=== PATIENT | female | born 1940 | race Asian ===

== ENCOUNTER 2017-05-16 08:44 | Emergency (ER) | payer MEDICARE, OTHER ==
[~2017-05-16] VITALS: Ht 157.5 cm; Wt 79.7 kg
[~2017-05-16 08:44] MED LIST: ACET325T33 PO; ALEN70TA30 PO; ALLO100T PO; BECL8.7A5 INH; DICL100G37 TOP; FOLI-49 PO; GUAI118L94 PO; HYDR-3498 PO; IPRA4AER IH; LOSA100T47 PO; MONT10TA21 PO; OMEP20CA16 PO; PRA40 PO; PRED10TA PO; RTATR NEB; RTPRO NEB
[2017-05-16 08:47] VITALS: Ht 157.5 cm; Wt 79.7 kg
[2017-05-16] MEDS ORDERED: CEFTRIAXONE 1 GM/50 ML (PMX) 50 ML IVPB STA (09:26)
[2017-05-16] MEDS ORDERED: AZITHROMYCIN 500MG/NS (PMX) 250 ML IV STA (09:26)
[2017-05-16] MEDS ORDERED: ALBUTEROL 0.083% (NEB) 2.5 MG/3 ML AMP INH ONE (09:30)
[2017-05-16] MEDS ORDERED: IPRATROPIUM (NEB) 0.5 MG/2.5 ML AMP INH ONE (09:30)
[2017-05-16 09:53] LABS: ABNORMAL IP MESSAGE 1; BASOPHIL # 0.1 10^3/ul (0.0-0.1); BASOPHILS % 0.3 % (0.0-2.0); EOSINOPHILS # 0.3 10^3/ul (0.0-0.5); EOSINOPHILS % 1.4 % (0.0-7.0); HEMATOCRIT 40.5 % (37.0-47.0); HEMOGLOBIN 12.6 g/dl (12.0-16.0); MEAN CORPUSCULAR HGB CONC 31.1 g/dl (32.0-37.0); MEAN CORPUSCULAR VOLUME 93.1 fl (82.0-101.0); MEAN PLATELET VOLUME 10.6 fl (7.4-10.4); MONOCYTE # 1.7 10^3/ul (0.3-0.9); MONOCYTES % 8.8 % (0.0-11.0); NEUTROPHIL # 15.5 10^3/ul (1.6-7.5); PLATELET COUNT 143 10^3/UL (140-415); RED BLOOD COUNT 4.35 10^6/ul (4.20-5.40); RED CELL DISTRIBUTION WIDTH 12.9 % (11.5-14.5); WHITE BLOOD COUNT 19.6 10^3/ul (4.8-10.8)
--- NOTE | 2017-05-16 09:53 | ERA ---
ER Documentation Chief Complaint Date/Time DATE: 05/16/17 TIME: 09:52 Chief Complaint cough,st,sob since tuesday HPI This is 76-year-old female complains of cough for 3 days. She has yellow productive sputum and having subjective fevers with chills. She says that she is not short of breath has no chest pain no nausea vomiting diarrhea no work of breathing increases or shortness of breath. The patient has a history of sarcoidosis and says that she "always has lung problems". ROS All systems reviewed and are negative except as per history of present illness. Medications Home Meds Active Scripts Albuterol Sulfate* (Albuterol Sulfate* Neb) 0.083%-3 Ml Neb, 2.5 MG NEB Q4 Y for SHORTNESS OF BREATH, #30 EA Prov:ZACHARY MISHRA DO 05/16/17 Prednisone* (Prednisone*) 20 Mg Tab, 40 MG PO DAILY for 4 Days, TAB Prov:ZACHARY MISHRA DO 05/16/17 Azithromycin* (Zithromax*) 250 Mg Tablet, 250 MG PO .ZPACK DIRECTED, #6 TAB TAKE 500 MG (2 TABS) THE FIRST DAY THEN 250 MG (1 TAB) DAYS 2-5 Prov:ZACHARY MISHRA DO 05/16/17 Diclofenac Sodium* (Voltaren* Gel) 1% -100 Gm Gel, 2 GM TOP QID for PAIN for 14 Days, TUB Prov:MILADIS PIZANO NP 08/13/15 Hydrocodone Bit-Acetaminophen* ([place]*) 5-325 Mg Tab, 1 TAB PO Q6 Y for PAIN, # 14 TAB Prov:SUSI FLETCHER PA-C 07/30/15 Acetaminophen* (Tylenol*) 325 Mg Tablet, 2 TAB PO Q6 Y for PAIN AND OR ELEVATED TEMP, #20 TAB Prov:VALENCIA MARMOLEJO NP 07/23/15 Albuterol Sulfate* (Proventil* Neb) 0.083% Neb, 2.5 MG NEB Q4 Y for SHORTNESS OF BREATH, #30 EA Prov:NEISHA GONZALEZ MD 07/20/15 Ipratropium [place]* (Atrovent*) 0.5 Mg/2.5 Ml Neb, 0.5 MG NEB Q4H Y for WHEEZING AND SOB, #1 BOX Prov:NEISHA GONZALEZ MD 07/20/15 Guaifenesin-Codeine Phosphate* (Guaifenesin* with Codeine Liq) 120 Ml Liquid, 5 ML PO Q4H Y for COUGH, #120 ML Prov:NAUN SINGLETON NP 04/28/15 Albuterol/Ipratropium* (Combivent Respimat*) 20-100 Mcg/Inh - 4 Gm Aer.w.adap, 1 PUFF IH QID, #1 BOT Prov:RAVEN STERN 03/11/15 Reported Medications Alendronate Sodium* (Fosamax*) 70 Mg Tablet, 70 MG PO Q7D, TAB ON Tuesday05/17/14 Beclomethasone Dip* (Qvar 80*) 7.3 Gm Inha, 2 PUFF INH BID, INH 05/17/14 Prednisone* (Prednisone*) 10 Mg Tab, 10 MG PO DAILY, TAB 05/17/14 Folic Acid* (Folic Acid*) 1 Mg Tablet, 1 MG PO DAILY 10/11/12 Losartan Potassium* (Cozaar*) 100 Mg Tablet, 100 MG PO DAILY 10/11/12 Pravastatin Sodium* (Pravachol*) 40 Mg Tablet, 40 MG PO DAILY 10/11/12 Omeprazole* (Omeprazole*) 20 Mg Capsule.dr, 20 MG PO DAILY 10/11/12 Montelukast Sodium* (Singulair*) 10 Mg Tablet, 10 MG PO DAILY 10/11/12 Allopurinol* (Allopurinol*) 100 Mg Tablet, 100 MG PO DAILY 10/11/12 Allergies Allergies: Coded Allergies: ibuprofen (Verified Allergy, Unknown, 05/16/17) PMhx/Soc History of Surgery: Yes (Niko eyes cataract) Anesthesia Reaction: No Hx Neurological Disorder: No Hx Respiratory Disorders: Yes (ASTHMA, SARCOID IN THE LUNGS ) Hx Cardiac Disorders: Yes (HYPERTENSION, CHOLESTEROL) Hx Psychiatric Problems: No Hx Miscellaneous Medical Probl: No Hx Alcohol Use: No Hx Substance Use: No Hx Tobacco Use: No Smoking Status: Never smoker FmHx Family History: No coronary disease Physical Exam Vitals Vital Signs Date Time Temp Pulse Resp B/P Pulse Ox O2 Delivery O2 Flow Rate FiO2 05/16/17 09:57 88 25 96 Nasal Cannula 05/16/17 09:30 Nasal Cannula 2 05/16/17 09:11 Nasal Cannula 2.0 05/16/17 08:47 98.2 102 18 130/66 95 Physical Exam Const: Well-developed, well-nourished Head: Atraumatic, normocephalic Eyes: Normal Conjunctiva, PERRLA, EOMI, normal sclera, no nystagmus ENT: Normal External Ears, Nose and Mouth, moist mucus membranes. Neck: Full range of motion. No meningismus, no lymphadenopathy. Resp: [Right lower lobe rhonchi > diffuse rhonchi Cardio: Regular rate and rhythm, no murmurs, S1 S2 present Abd: Soft, non tender x 4, non distended. Normal bowel sounds, no guarding or rebound, no pulsitile abdominal masses or bruits Skin: No petechiae or rashes, no ecchymosis , no maculopapular rash Back: No midline or flank tenderness Ext: No cyanosis, or edema, FROM x 4, normal inspection, neurovascularly intact x 4 Neur: Awake and alert, STR 5/5 x 4, sensation intact x 4, no focal findings, cerebellum intact Psych: Normal Mood and Affect Result Diagram: 05/16/1740 05/16/17939 Results 24 hrs Laboratory Tests Test 05/16/17 09:40 White Blood Count 19.610^3/ul Red Blood Count 4.3510^6/ul Hemoglobin 12.6g/dl Hematocrit 40.5% Mean Corpuscular Volume 93.1fl Mean Corpuscular Hemoglobin 29.0pg Mean Corpuscular Hemoglobin Concent 31.1g/dl Red Cell Distribution Width 12.9% Platelet Count 95485^3/UL Mean Platelet Volume 10.6fl Neutrophils % 79.0% Lymphocytes % 10.0% Monocytes % 8.8% Eosinophils % 1.4% Basophils % 0.3% Nucleated Red Blood Cells % 0.0/100WBC Neutrophils # 15.510^3/ul Lymphocytes # 2.010^3/ul Monocytes # 1.710^3/ul Eosinophils # 0.310^3/ul Basophils # 0.110^3/ul Nucleated Red Blood Cells # 0.010^3/ul Sodium Level 145mmol/L Potassium Level 4.2mmol/L Chloride Level 107mmol/L Carbon Dioxide Level 29mmol/L Anion Gap 13 Blood Urea Nitrogen 26mg/dl Creatinine 1.99mg/dl Glucose Level 113mg/dl Calcium Level 9.5mg/dl Total Bilirubin 0.5mg/dl Direct Bilirubin 0.00mg/dl Indirect Bilirubin 0.5mg/dl Aspartate Amino Transf (AST/SGOT) 44IU/L Alanine Aminotransferase (ALT/SGPT) 59IU/L Alkaline Phosphatase 81IU/L B-Type Natriuretic Peptide 456PG/ML Total Protein 7.5g/dl Albumin 3.9g/dl Globulin 3.60g/dl Albumin/Globulin Ratio 1.08 Current Medications Medications (Trade) Dose Ordered Sig/Arlyn Route PRN Reason Start Time Stop Time Status Last Admin Dose Admin Albuterol (Proventil 0.083% (Neb)) 7.5 mg ONCE ONCE INH 05/16/17 09:30 05/16/17 09:31 DC 05/16/17 09:56 Ipratropium [place] 0.5 mg 0.5 mg ONCE ONCE INH 05/16/17 09:30 05/16/17 09:31 DC 05/16/17 09:56 Azithromycin 250 ml @ 250 mls/hr ONCE STAT IV 05/16/17 09:26 05/16/17 10:25 DC 05/16/17 09:26 Ceftriaxone Sodium (Rocephin) 50 ml @ 100 mls/hr ONCE STAT IVPB 05/16/17 09:26 05/16/17 09:55 DC 05/16/17 09:49 Methylprednisolone Sodium Succinate (Solu-Medrol) 125 mg ONCE STAT IV 05/16/17 12:19 05/16/17 12:20 DC Procedures/MDM PROCEDURE: XR Chest. CLINICAL INDICATION: Shortness of breath. TECHNIQUE: Single frontal view of the chest was obtained. COMPARISON: Chest x-ray 07/20/2015 12:[address] chest 03/08/2015. FINDINGS: Monitoring electrodes project across the chest. Degenerative osteophytes are noted in the thoracic and upper lumbar spine. The heart is enlarged. The cardiomediastinal silhouette and hilar structures are normal. The pulmonary vasculature is increased. There are vascular calcifications and ectasia of the left-sided thoracic aorta. There are interstitial perihilar infiltrates extending toward the periphery of the lungs with more confluent infiltrates in the right and left lower lobes. These are unchanged. A plate-like density seen lateral to the right hilum on the earlier study has resolved. Plate-like density seen in the periphery of the left lower lobe have improved over the interval. No pleural effusion is noted. There are cystic lucencies in the right lower lung field which are stable. IMPRESSION: 1. Atherosclerosis with ectasia of the thoracic aorta. 2. Cardiomegaly. 3. Pulmonary cystic bronchiectasis greater in the right lower lobe than left. Findings are unchanged compared to the prior CT scan of 03/08/2015 and more recent chest x-ray dated 07/20/2015. Some atelectasis seen lateral to the right hilum and near the left costophrenic angle on the prior chest x-ray resolved over the interval. 4. No new infiltrate is identified. RPTAT:AAJJ Ashu German Physician Date Time Electronically viewed and signed by Ashu German, Physician on 05/16/2017 10:02 JM/ CC: ZACHARY MISHRA DO The patient received some nebulizer treatments and she says she is feeling better. The patient takes 10 mg of prednisone each day hence the elevation in her white blood count. The patient says she has a nebulizer machine which she is out of solution. Room air oxygenation is 96% after breathing treatment and the patient states she feels better. Chest x-ray does not show any change or infiltrate. Patient has a bronchitis and will treat accordingly. We will discharge with a Z -Artemio, increase prednisone dose for 4 days and albuterol Departure Diagnosis: Primary Impression: Bronchitis Condition: Stable ZACHARY MISHRA DO May 16, 2017 09:53
[2017-05-16 09:57] LABS: POSITIVE DIFF @See below
--- NOTE | 2017-05-16 10:02 | RADRPT ---
PROCEDURE: XR Chest. CLINICAL INDICATION: Shortness of breath. TECHNIQUE: Single frontal view of the chest was obtained. COMPARISON: Chest x-ray 07/20/2015 12:[address] chest 03/08/2015. FINDINGS: Monitoring electrodes project across the chest. Degenerative osteophytes are noted in the thoracic and upper lumbar spine. The heart is enlarged. The cardiomediastinal silhouette and hilar structure s are normal. The pulmonary vasculature is increased. There are vascular calcifications and ectasia of the left-sided thoracic aorta. There are interstitial perihilar infiltrates extending toward the periphery of the lungs with more confluent infiltrates in the right and left lower lobes. These are unchanged. A plate-like density seen lateral to the right hilum on the earlier study has resolved. Plate-like density seen in the periphery of the left lower lobe have improved over the interval. No pleural effusion is noted. There are cystic lucencies in the right lower lung field which are stable . IMPRESSION: 1. Atherosclerosis with ectasia of the thoracic aorta. 2. Cardiomegaly. 3. Pulmonary cystic bronchiectasis greater in the right lower lobe than left. Findings are unchanged compared to the prior CT scan of 03/08/2015 and more recent chest x-ray dated 07/20/2015. Some atel ectasis seen lateral to the right hilum and near the left costophrenic angle on the prior chest x-ra y resolved over the interval. 4. No new infiltrate is identified. RPTAT:AAJJ Physician Nicolas Date Time Electronically viewed and signed by Physician Nicolas on 05/16/2017 10:02 HECTOR/
[2017-05-16 10:27] LABS: ALBUMIN 3.9 g/dl (3.3-4.9); ALBUMIN/GLOBULIN RATIO 1.08; BILIRUBIN,INDIRECT 0.5 mg/dl (0-1.1); BILIRUBIN,TOTAL 0.5 mg/dl (0.2-1.3); CALCIUM 9.5 mg/dl (8.4-10.2); CREATININE 1.99 mg/dl (0.44-1.00); POTASSIUM 4.2 mmol/L (3.5-5.1); TOTAL PROTEIN 7.5 g/dl (6.1-8.1)
[2017-05-16 11:10] VITALS: BP 132/63; PULSE 68; RESP 18; TEMP 98.2
[2017-05-16] MEDS ORDERED: METHYLPREDNISOLONE 125 MG INJ IV STA (12:19)
[2017-05-16] MEDS ORDERED: PRED20TA PO (12:22)
[2017-05-16] MEDS ORDERED: AZIT250T94 PO (12:22)
[2017-05-16] MEDS ORDERED: ALBU2.5V3 NEB (12:22)
== END 2017-05-16 14:35 | disposition home or self-care (01) ==
LOC: E/R 08:44
DX: J20.9 Acute bronchitis, unspecified (principal); J45.909 Unspecified asthma, uncomplicated; I10 Essential (primary) hypertension
CPT/HCPCS: 36415; 71010; 80053; 83880; 85025; 87040; 94644; 96374; 96375; 99284; J0456; J0696; J2930

== ENCOUNTER 2017-05-30 13:25 | Inpatient (IN) | payer MEDICARE, OTHER ==
[~2017-05-30] VITALS: Ht 162.6 cm; Wt 74.7 kg
[~2017-05-30 13:25] MED LIST changes: +ALBU2.5V3 NEB; +AZIT250T94 PO; +PRED20TA PO
[2017-05-30] MEDS ORDERED: METHYLPREDNISOLONE 125 MG INJ IV STA (16:20)
[2017-05-30] MEDS ORDERED: ALBUTEROL 0.083% (NEB) 2.5 MG/3 ML AMP NEB STA (16:20)
--- NOTE | 2017-05-30 17:35 | RADRPT ---
PROCEDURE: XR Chest. CLINICAL INDICATION: Chest Pain. TECHNIQUE: Single frontal view of the chest was obtained. COMPARISON: 05/16/2017, 07/20/2015 FINDINGS: The cardiomediastinal silhouette is within normal limits. There is moderate aortic calcification. P ulmonary vasculature is within normal limits. There is diffuse thickening of interstitial markings and bronchiectasis. This appears most prominent through the right lung and left lung base.. No signs of pleural fluid or pneumothorax are seen. The osseous structures and soft tissues are unre markable. IMPRESSION: 1. Diffuse bronchiectasis and chronic interstitial changes. 2. Moderate aortic calcification. 3. No focal consolidation identified. RPTAT: HBST .Ochoa Cosme MD, MD Date Time Electronically viewed and signed by .Ochoa Cosme MD, on 05/30/2017 17:35 .T/
[2017-05-30] MEDS ORDERED: ALBU8.5H3 INH (17:58)
[2017-05-30] MEDS ORDERED: VITA200C36 PO (17:59)
--- NOTE | 2017-05-30 20:15 | ERD ---
ER Documentation Chief Complaint Chief Complaint sob this morning HPI The patient is a 74-year-old female with a history of hypertension, sarcoidosis , and possible asthma, osteoporosis, gout, chronic kidney disease complaining of shortness of breath over the past few days. The patient says that she has shortness of breath with exertion and with lying flat. The patient says that she has had a cough for about 2 weeks now it is occasionally productive but no fever. No substernal chest pain no shortness of breath at rest. The patient is not on home oxygen and does not use a nebulizer machine. The patient says she is on steroids for autoimmune condition. The patient has no complaints of nausea vomiting diarrhea or lack of appetite ROS All systems reviewed and are negative except as per history of present illness. Medications Home Meds Active Scripts Albuterol/Ipratropium* (Combivent Respimat*) 20-100 Mcg/Inh - 4 Gm Aer.w.adap, 1 PUFF IH QID, #1 BOT Prov:LEENARAVEN 03/11/15 Reported Medications Vitamin E* (Vitamin E*) Unknown Strength Capsule, 1 CAP PO DAILY, CAP 05/30/17 Albuterol Sulfate* (Proair HFA*) 8.5 Gm Hfa.aer.ad, 2 PUFF INH Q6H Y for WHEEZING AND SOB, #1 INHALER 05/30/17 Alendronate Sodium* (Fosamax*) 70 Mg Tablet, 70 MG PO Q7D, TAB ON Tuesday05/17/14 Prednisone* (Prednisone*) 10 Mg Tab, 10 MG PO DAILY, TAB QAM 05/17/14 Folic Acid* (Folic Acid*) 1 Mg Tablet, 1 MG PO DAILY 10/11/12 Losartan Potassium* (Cozaar*) 100 Mg Tablet, 100 MG PO DAILY 10/11/12 Pravastatin Sodium* (Pravachol*) 40 Mg Tablet, 40 MG PO DAILY 10/11/12 Omeprazole* (Omeprazole*) 20 Mg Capsule.dr, 20 MG PO DAILY 10/11/12 Montelukast Sodium* (Singulair*) 10 Mg Tablet, 10 MG PO DAILY 10/11/12 Allopurinol* (Allopurinol*) 100 Mg Tablet, 100 MG PO DAILY 10/11/12 Discontinued Reported Medications Beclomethasone Dip* (Qvar 80*) 7.3 Gm Inha, 2 PUFF INH BID, INH 05/17/14 Discontinued Scripts Albuterol Sulfate* (Albuterol Sulfate* Neb) 0.083%-3 Ml Neb, 2.5 MG NEB Q4 Y for SHORTNESS OF BREATH, #30 EA Prov:ZACHARY MISHRA DO 05/16/17 Prednisone* (Prednisone*) 20 Mg Tab, 40 MG PO DAILY for 4 Days, TAB Prov:ZACHARY MISHRA DO 05/16/17 Azithromycin* (Zithromax*) 250 Mg Tablet, 250 MG PO .ZPACK DIRECTED, #6 TAB TAKE 500 MG (2 TABS) THE FIRST DAY THEN 250 MG (1 TAB) DAYS 2-5 Prov:ZACHARY MISHRA DO 05/16/17 Diclofenac Sodium* (Voltaren* Gel) 1% -100 Gm Gel, 2 GM TOP QID for PAIN for 14 Days, TUB Prov:MILADIS PIZANO [employer]ATING [employer]IPMENT SETTER 08/13/15 Hydrocodone Bit-Acetaminophen* ([place]*) 5-325 Mg Tab, 1 TAB PO Q6 Y for PAIN, # 14 TAB Prov:SUSI FLETCHER PA-C 07/30/15 Acetaminophen* (Tylenol*) 325 Mg Tablet, 2 TAB PO Q6 Y for PAIN AND OR ELEVATED TEMP, #20 TAB Prov:VALENCIA MARMOLEJO NP 07/23/15 Albuterol Sulfate* (Proventil* Neb) 0.083% Neb, 2.5 MG NEB Q4 Y for SHORTNESS OF BREATH, #30 EA Prov:NEISHA GONZALEZ MD 07/20/15 Ipratropium [place]* (Atrovent*) 0.5 Mg/2.5 Ml Neb, 0.5 MG NEB Q4H Y for WHEEZING AND SOB, #1 BOX Prov:NEISHA GONZALEZ MD 07/20/15 Guaifenesin-Codeine Phosphate* (Guaifenesin* with Codeine Liq) 120 Ml Liquid, 5 ML PO Q4H Y for COUGH, #120 ML Prov:NAUN SINGLETON [employer]ATING EQUIPMENT SETTER 04/28/15 Allergies Allergies: Coded Allergies: ibuprofen (Verified Allergy, Unknown, 05/30/17) PMhx/Soc History of Surgery: Yes (Niko eyes cataract) Anesthesia Reaction: No Hx Neurological Disorder: No Hx Respiratory Disorders: Yes (ASTHMA, SARCOID IN THE LUNGS ) Hx Cardiac Disorders: Yes (HYPERTENSION, CHOLESTEROL) Hx Psychiatric Problems: No Hx Miscellaneous Medical Probl: No Hx Alcohol Use: No Hx Substance Use: No Hx Tobacco Use: No Smoking Status: Never smoker FmHx Family History: No coronary disease Physical Exam Vitals Vital Signs Date Time Temp Pulse Resp B/P Pulse Ox O2 Delivery O2 Flow Rate FiO2 05/30/17 18:33 95 18 127/71 98 Nasal Cannula 1.0 05/30/17 18:03 98 18 120/65 98 Nasal Cannula 05/30/17 17:03 85 23 Nasal Cannula 1.0 05/30/17 16:44 Nasal Cannula 2.0 05/30/17 16:44 Nasal Cannula 2 05/30/17 13:31 98.4 107 22 141/77 96 Physical Exam Const: Well-developed, well-nourished Head: Atraumatic, normocephalic Eyes: Normal Conjunctiva, PERRLA, EOMI, normal sclera, no nystagmus ENT: Normal External Ears, Nose and Mouth, moist mucus membranes. Neck: Full range of motion. No meningismus, no lymphadenopathy. Resp: Bilateral decreased breath sounds with some scattered rhonchi Cardio: Regular rate and rhythm, no murmurs, S1 S2 present Abd: Soft, non tender x 4, non distended. Normal bowel sounds, no guarding or rebound, no pulsitile abdominal masses or bruits Skin: No petechiae or rashes, no ecchymosis , no maculopapular rash Back: No midline or flank tenderness Ext: No cyanosis, or edema, FROM x 4, normal inspection, neurovascularly intact x 4 Neur: Awake and alert, STR 5/5 x 4, sensation intact x 4, no focal findings, cerebellum intact Psych: Normal Mood and Affect Result Diagram: 05/30/17 1655 05/30/17 1655 Results 24 hrs Laboratory Tests Test 05/30/17 16:55 White Blood Count 18.010^3/ul Red Blood Count 4.6910^6/ul Hemoglobin 13.6g/dl Hematocrit 42.1% Mean Corpuscular Volume 89.8fl Mean Corpuscular Hemoglobin 29.0pg Mean Corpuscular Hemoglobin Concent 32.3g/dl Red Cell Distribution Width 13.0% Platelet Count 39152^3/UL Mean Platelet Volume 10.6fl Neutrophils % 85.5% Lymphocytes % 8.5% Monocytes % 3.8% Eosinophils % 0.2% Basophils % 0.6% Nucleated Red Blood Cells % 0.0/100WBC Neutrophils # 15.410^3/ul Lymphocytes # 1.510^3/ul Monocytes # 0.710^3/ul Eosinophils # 0.010^3/ul Basophils # 0.110^3/ul Nucleated Red Blood Cells # 0.010^3/ul Prothrombin Time 12.4Sec Prothrombin Time Ratio 1.0 INR International Normalized Ratio 0.92 Activated Partial Thromboplast Time 23.6Sec Sodium Level 142mmol/L Potassium Level 4.3mmol/L Chloride Level 105mmol/L Carbon Dioxide Level 23mmol/L Anion Gap 18 Blood Urea Nitrogen 44mg/dl Creatinine 2.09mg/dl Glucose Level 145mg/dl Calcium Level 9.7mg/dl Total Bilirubin 0.4mg/dl Direct Bilirubin 0.00mg/dl Indirect Bilirubin 0.4mg/dl Aspartate Amino Transf (AST/SGOT) 25IU/L Alanine Aminotransferase (ALT/SGPT) 44IU/L Alkaline Phosphatase 71IU/L Troponin I 0.018ng/ml B-Type Natriuretic Peptide 286PG/ML Total Protein 7.4g/dl Albumin 4.5g/dl Globulin 2.90g/dl Albumin/Globulin Ratio 1.55 Current Medications Medications (Trade) Dose Ordered Sig/Arlyn Route PRN Reason Start Time Stop Time Status Last Admin Dose Admin Albuterol (Proventil 0.083% (Neb)) 7.5 mg ONCE STAT NEB 05/30/17 16:20 05/30/17 16:26 DC 05/30/17 17:01 Methylprednisolone Sodium Succinate (Solu-Medrol) 125 mg ONCE STAT IV 05/30/17 16:20 05/30/17 16:26 DC 05/30/17 16:39 Procedures/MDM PROCEDURE: XR Chest. CLINICAL INDICATION: Chest Pain. TECHNIQUE: Single frontal view of the chest was obtained. COMPARISON: 05/16/2017, 07/20/2015 FINDINGS: The cardiomediastinal silhouette is within normal limits. There is moderate aortic calcification. Pulmonary vasculature is within normal limits. There is diffuse thickening of interstitial markings and bronchiectasis. This appears most prominent through the right lung and left lung base.. No signs of pleural fluid or pneumothorax are seen. The osseous structures and soft tissues are unremarkable. IMPRESSION: 1. Diffuse bronchiectasis and chronic interstitial changes. 2. Moderate aortic calcification. 3. No focal consolidation identified. RPTAT: HBST .Ochoa Cosme MD, MD Date Time Electronically viewed and signed by .Ochoa Cosme MD, MD on 05/30/2017 17:35 .T/ CC: ZACHARY MISHRA DO EKG: Rate/Rhythm: Normal Sinus Rhythm,NL intervals QRS, ST, QT: NORMAL TX, QRS, QT] Impression: NORMAL EKG Patient is given nebulizers and Solu-Medrol. After that watched the patient for a few hours. She was ambulated in the ER and she became symptomatic again her sats dropped to 85% Having some bronchitis/reactive airway disease likely due to her autoimmune condition Will admit for pulmonary therapy Departure Diagnosis: Primary Impression: Hypoxia Additional Impressions: Sarcoidosis Reactive airway disease Asthma severity: moderate Asthma persistence: persistent Asthma complication type: uncomplicated Qualified Code: J45.40 - Moderate persistent reactive airway disease without complication Condition: Stable ZACHARY MISHRA DO May 30, 2017 20:15
[2017-05-30 20:30] VITALS: TEMP 98.4
[2017-05-30] MEDS ORDERED: ONDANSETRON 4 MG INJ IV PRN ×2 (20:30→23:00)
[2017-05-30] MEDS ORDERED: ACETAMINOPHEN 325 MG TAB PO PRN ×2 (20:30→23:00)
[2017-05-30 21:57] VITALS: PULSE 95
[2017-05-30 22:08] VITALS: Ht 162.6 cm; Wt 74.7 kg
[2017-05-30 22:18] VITALS: BP 115/55; RESP 18
[2017-05-30] MEDS ORDERED: NACL 0.9% 3 ML SYG IV SCH (23:00)
[2017-05-31] VITALS (12 sets, daily range): BP systolic 102–125; BP diastolic 55–89; PULSE 77–100; RESP 18–20
[2017-05-31] MEDS ORDERED: ALBUTEROL/IPRATROPIUM (NEB) 3 ML AMP HHN SCH (01:00)
[2017-05-31] MEDS: ALBUTEROL/IPRATROPIUM (NEB) 3 ML AMP HHN SCH ×6 (01:36→21:17)
[2017-05-31] MEDS ORDERED: SOD CHLORIDE 0.9% 500 ML IV ONE (04:30)
--- NOTE | 2017-05-31 05:39 | HP ---
Date/Time of Note Date/Time of Note DATE: 05/31/17 TIME: 05:09 Assessment/Plan VTE Prophylaxis VTE Prophylaxis Intervention: SCD's Lines/Catheters IV [facility]ter [facility]from [facility] Saline Lock Assessment/Plan Chief Complaint/Hosp Course This is a 76 year female being admitted to the telemetry floor for: 1 shortness of breath: This likely appears secondary to patient's underlying sarcoidosis/possible asthma. Patient did receive a loading dose of IV steroids in the ED. At the current time she does look comfortable as compared to when she initially came in and was tachypneic as noted on the ED documentation. At the current time I will continue her steroid dose and de-escalate as indicated. Will give her Xopenex every 4 hours. She does have an elevated white blood cell count however there are no fevers will continue to monitor this and check a ESR and a CRP level. She is on chronic steroids however 18,000 does appear to be slightly high so for this reason again we will check for any signs of underlying infection. Continue home inhalers.There are some signs of interstitial changes and get this is on the chest x-ray, consider CT scan if indicated. Supplemental O2 is indicated. #2 leukocytosis: Could be stress related/steroid related. There is no fever at this time and no signs of any focal consolidation on chest x-ray. Will order ESR and CRP level. Will continue to monitor for any signs of any infection and trend white blood cell count. #3 Hypertension: Continue monitor blood pressure, will hold losartan at this time secondary to acute kidney injury. #4 chronic kidney disease: Acute kidney injury patient's current creatinine is 1.99 which is increased from previous admission. Likely appears to be prerenal in etiology. Will provide some IV fluid hydration with normal saline. Will monitor kidney function. Will hold losartan at this time. #5 gout: Continue allopurinol #6 sarcoidosis: Please see #1. Will consult pulmonology if indicated. Patient is onChronic prednisone will hold home dose this time #7 DVT GI prophylaxis: SCDs, Protonix Further treatment strategy will be implemented as per the clinical course Problems: HPI/ROS Admit Date/Time Admit Date/Time May 30, 2017 at 20:09 Hx of Present Illness cc: sob The patient is a 74-year-old female with a history of hypertension, sarcoidosis , and possible asthma, osteoporosis, gout, chronic kidney disease complaining of shortness of breath over the past few days. The patient says that she has shortness of breath with exertion and with lying flat. The patient says that she has had a cough for about 2 weeks now it is occasionally productive but no fever. No substernal chest pain no shortness of breath at rest. The patient is not on home oxygen, but does have a nebulizer machine. The patient says she is on steroids for her sarcoidosis. She does report that she has been noticing herself wheezing as well. Allergies: Ibuprofen Occasions: See CAMILO MUNROE Const: As per HPI Eyes : No pain discharge or redness or change in visual acuity ENT: No pain, sore throat, congestion, congestion, dysphagia or discharge Respiratory: As per HPI Cardiovascular: No chest pain, palpitation, PND, or edema GI : no change in appetite, abdominal pain, nausea, vomiting, diarrhea, constipation, or change in the color his stool Genitourinary: No dysuria, hematuria, flank pain , discharge or CVA tenderness Musculoskeletal: No joint pain, back pain, neck pain, restricted range of motion in neck or joints Skin: No rash, bruising or hives Neuro: No headache, dizziness, syncope, seizure, focal weakness Endocrine: No polyuria, polydipsia, temperature intolerance Psych: No hallucination, depression, anxiety or suicidal ideation PMH/Family/Social Past Medical History hypertension, sarcoidosis, and possible asthma, osteoporosis, gout, chronic kidney disease Past Surgical History Right breast lump removal Family History Significant Family History: no pertinent family hx Social History Alcohol Use: none Smoking Status: Never smoker Drug Use: none Exam/Review of Systems Vital Signs Vitals Vital Signs Date Time Temp Pulse Resp B/P Pulse Ox O2 Delivery O2 Flow Rate FiO2 05/31/17 04:15 77 05/31/17 03:46 99.1 19 105/56 93 05/31/17 01:44 2.0 05/31/17 01:39 Nasal Cannula Exam Exam General: Patient is lying in bed in no acute distress at this time HEENT: Atraumatic, normocephalic. The pupils are equal, round and reactive. Extraocular motor are intact Neck: Supple with full range of motion. No rigidity or meningismus Chest: Nontender Lungs: Normal respirations however there are some coarse breath sounds/rales heard at the bases bilaterally Heart: Normal S1-S2, Regular rhythm and rate. Abdomen: Soft , nontender, nondistended , bowel sounds are present. No guarding no rebound tenderness , No masses or organomegaly. No costovertebral temporal angle mass Extremities: Normal to inspection, no edema no cyanosis Neurologic: Normal mental status, speech normal, cranial nerves II through XII are intact, motor and sensory are intact, no focal weakness Additional Comments PROCEDURE: XR Chest. CLINICAL INDICATION: Chest Pain. TECHNIQUE: Single frontal view of the chest was obtained. COMPARISON: 05/16/2017, 07/20/2015 FINDINGS: The cardiomediastinal silhouette is within normal limits. There is moderate aortic calcification. Pulmonary vasculature is within normal limits. There is diffuse thickening of interstitial markings and bronchiectasis. This appears most prominent through the right lung and left lung base.. No signs of pleural fluid or pneumothorax are seen. The osseous structures and soft tissues are unremarkable. IMPRESSION: 1. Diffuse bronchiectasis and chronic interstitial changes. 2. Moderate aortic calcification. 3. No focal consolidation identified. RPTAT: HBST .Ochoa Cosme MD, MD Date Time Electronically viewed and signed by .Ochoa Cosme MD, MD on 05/30/2017 17:35 .T/ CC: ZACHARY MISHRA DO Labs Result Diagram: 05/30/17 1655 05/30/17 1655 Medications Medications Current Medications Ondansetron HCl (Zofran Inj) 4 mg Q6H PRN IV NAUSEA AND/OR VOMITING; Start at 23:00 Acetaminophen (Tylenol Tab) 650 mg Q6H PRN PO PAIN LEVEL 1-3 OR FEVER; Start 05/30/17 at 23:00 Pantoprazole (Protonix Iv) 40 mg DAILY@06 IV ; Start 05/31/17 at 06:00 Methylprednisolone Sodium Succinate 30 mg 30 mg Q8 IV ; Start 05/31/17 at 06:00 Sodium Chloride (NS) 500 ml @ 500 mls/hr Q1H ONCE IV Last administered on t 04:52; Admin Dose 500 MLS/HR; Start 05/31/17 at 04:30; Stop 05/31/17 at 05:29 JA QUEZADA May 31, 2017 05:39
[2017-05-31] MEDS ORDERED: ALBUTEROL HFA 8 GM INHALER INH PRN (06:00)
[2017-05-31] MEDS ORDERED: PANTOPRAZOLE 40 MG INJ IV SCH (06:00)
[2017-05-31] MEDS: METHYLPREDNISOLONE 40 MG INJ IV SCH ×2 (06:13→13:22)
[2017-05-31] MEDS: ATORVASTATIN 20 MG TAB PO SCH (08:34)
[2017-05-31] MEDS: MONTELUKAST 10 MG TAB PO SCH (08:34)
[2017-05-31] MEDS: ALLOPURINOL 100 MG TAB PO SCH (08:34)
[2017-05-31] MEDS: FOLIC ACID 1 MG TAB PO SCH (08:34)
[2017-05-31] MEDS ORDERED: IPRATROPIUM (HFA) 12.9 GM INHALER INH SCH (09:00)
[2017-05-31] MEDS ORDERED: ALBUTEROL HFA 8 GM INHALER INH SCH (09:00)
[2017-05-31] MEDS: VITAMIN E 400 UNITS CAP PO SCH (10:36)
--- NOTE | 2017-05-31 11:53 | CONS ---
Date/Time of Note Date/Time of Note DATE: 05/31/17 TIME: 11:48 Assessment/Plan Assessment/Plan Additional Assessment/Plan Chest x-ray was reviewed from yesterday which is showing interstitial lung disease. Assessment and recommendations; 1. Patient admitted with shortness of breath due to underlying sarcoidosis with interval improvement. Possibly superimposed acute bronchitis. 2. Chronic immunosuppression, patient on nursing home prednisone use. 3. History of chronic renal insufficiency. Continue current treatment. Consultation Date/Type/Reason Admit Date/Time May 30, 2017 at 20:09 Date of Consultation: May 31, 2017 Type of Consultation: Pulmonary Reason for Consultation Pulmonary consultation requested for evaluation of sarcoidosis. History of presenting illness; patient is a very pleasant 76-year-old lady who was admitted to the hospital yesterday with a few days history of shortness of breath and chest congestion. Patient however denied having any wheezing. Since admission patient is already feeling markedly improved. According to her she normally has fair respiratory status and her sarcoidosis is under good control with 10 mg of prednisone daily. Past medical history; 1. Patient with history of sarcoidosis maintained on low-dose prednisone on a chronic basis. 2. Gout. 3. Chronic renal insufficiency. Medications; reviewed. Allergies; ibuprofen. Social history; patient never smoked. No history of alcohol or drug abuse. Family history; she is . She does not have any children. 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 Review systems; denies any headache, seizures. Any visual changes. Shortness of breath has markedly improved. Complains of very scant cough. Denies any wheezing. Denies any sputum production. Denies any abdominal pain, nausea or vomiting. Patient has had stable weight. Denies any melena or hematochezia. Denies any urinary symptoms. Denies any skin changes. Any new arthritis symptoms. General exam; elderly woman, awake and alert. Currently in no distress. Social History Alcohol Use: none Smoking Status: Never smoker Drug Use: none Exam/Review of Systems Vital Signs Vitals Vital Signs Date Time Temp Pulse Resp B/P Pulse Ox O2 Delivery O2 Flow Rate FiO2 05/31/17 11:42 98.0 90 18 115/60 96 05/31/17 08:30 2.0 05/31/17 08:10 Nasal Cannula Intake and Output 05/30/17 05/30/17 05/31/17 15:00 23:00 07:00 Intake Total 150 ml Balance 150 ml Exam HEENT exam; supple neck, no JVD. No lymphadenopathy. Midline trachea. No thyromegaly. Patient has bilateral intraocular lens implants. Has multiple carious teeth. Chest exam; scattered crackles bilaterally. S1-S2 audible, no murmurs. Regular rhythm. Abdomen exam; soft, nontender. No organomegaly. Bowel sounds audible. Extremity exam; no peripheral edema. No clubbing. Pulses 1+ bilaterally. 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 Results Result Diagram: 05/31/17 0649 05/31/17 0649 Results 24 hrs Laboratory Tests Test 05/30/17 16:55 05/30/17 23:15 05/31/17 06:49 White Blood Count 18.0 H 13.1 #H Red Blood Count 4.69 4.44 Hemoglobin 13.6 12.8 Hematocrit 42.1 40.1 Mean Corpuscular Volume 89.8 90.3 Mean Corpuscular Hemoglobin 29.0 28.8 L Mean Corpuscular Hemoglobin Concent 32.3 31.9 L Red Cell Distribution Width 13.0 13.1 Platelet Count 178 # 151 Mean Platelet Volume 10.6 H 11.0 H Neutrophils % 85.5 H 94.8 H Lymphocytes % 8.5 L 4.1 L Monocytes % 3.8 0.5 Eosinophils % 0.2 0.0 Basophils % 0.6 0.1 Nucleated Red Blood Cells % 0.0 0.0 Neutrophils # 15.4 H 12.4 H Lymphocytes # 1.5 0.5 L Monocytes # 0.7 0.1 L Eosinophils # 0.0 0.0 Basophils # 0.1 0.0 Nucleated Red Blood Cells # 0.0 0.0 Prothrombin Time 12.4 Prothrombin Time Ratio 1.0 INR International Normalized Ratio 0.92 Activated Partial Thromboplast Time 23.6 L Sodium Level 142 143 Potassium Level 4.3 4.2 Chloride Level 105 109 Carbon Dioxide Level 23 22 Anion Gap 18 H 16 Blood Urea Nitrogen 44 H 50 H Creatinine 2.09 H 1.96 H Glucose Level 145 165 Calcium Level 9.7 9.4 Total Bilirubin 0.4 0.3 Direct Bilirubin 0.00 0.00 Indirect Bilirubin 0.4 0.3 Aspartate Amino Transf (AST/SGOT) 25 24 Alanine Aminotransferase (ALT/SGPT) 44 40 Alkaline Phosphatase 71 60 Troponin I 0.018 B-Type Natriuretic Peptide 286 480 H Total Protein 7.4 6.9 Albumin 4.5 3.7 Globulin 2.90 3.20 Albumin/Globulin Ratio 1.55 1.15 Erythrocyte Sedimentation Rate 5 Hemoglobin A1c 5.9 Magnesium Level 1.9 C-Reactive Protein < 0.5 Triglycerides Level 119 Cholesterol Level 169 LDL Cholesterol, Calculated 71 HDL Cholesterol 74 Cholesterol/HDL Ratio 2.2 Thyroid Stimulating Hormone (TSH) < 0.015 L Medications Medications Current Medications Ondansetron HCl (Zofran Inj) 4 mg Q6H PRN IV NAUSEA AND/OR VOMITING; Start at 23:00 Acetaminophen (Tylenol Tab) 650 mg Q6H PRN PO PAIN LEVEL 1-3 OR FEVER; Start 05/30/17 at 23:00 Pantoprazole (Protonix Iv) 40 mg DAILY@06 IV Last administered on 05/31/17 06 :13; Admin Dose 40 MG; Start 05/31/17 at 06:00 Methylprednisolone Sodium Succinate (Solu-Medrol) 30 mg Q8 IV Last administered on 05/31/17 06:13; Admin Dose 30 MG; Start 05/31/17 at 06:00 Albuterol (Ventolin Hfa) 2 puff Q6H PRN INH WHEEZING AND SOB; Start 05/31/17 at 06:00 Allopurinol (Zyloprim) 100 mg DAILY PO Last administered on 05/31/17 08:34; Admin Dose 100 MG; Start 05/31/17 at 09:00 Folic Acid (Folic Acid) 1 mg DAILY PO Last administered on 05/31/17 08:34; Admin Dose 1 MG; Start 05/31/17 at 09:00 Montelukast Sodium (Singulair) 10 mg DAILY PO Last administered on 05/31/17 08:34; Admin Dose 10 MG; Start 05/31/17 at 09:00 Atorvastatin Calcium (Lipitor) 20 mg DAILY PO Last administered on 05/31/17 08:34; Admin Dose 20 MG; Start 05/31/17 at 09:00 Vitamin E (Vitamin E) 400 units DAILY PO Last administered on 05/31/17 10:36 ; Admin Dose 400 UNITS; Start 05/31/17 at 11:00 AGNIESZKA HERNANDEZ May 31, 2017 11:53
--- NOTE | 2017-05-31 16:12 | PN ---
Date/Time of Note Date/Time of Note DATE: 05/31/17 TIME: 16:10 Assessment/Plan VTE Prophylaxis VTE Prophylaxis Intervention: SCD's Lines/Catheters IV Catheter Type (from Nrs): Saline Lock Assessment/Plan Assessment/Plan 76 yo F with sarcoid, ?asthma here for SOB likely 2/2 bronchitis cont steroids RVP to check for viral etio. no evidence of CAP cont inhalers dc in AM if Off O2 Subjective 24 Hr Interval Summary Free Text/Dictation already breathing better. reports a few days of nonproductive coughing prior to admission Exam/Review of Systems Vital Signs Vitals Vital Signs Date Time Temp Pulse Resp B/P Pulse Ox O2 Delivery O2 Flow Rate FiO2 05/31/17 16:01 88 18 95 Nasal Cannula 2.0 05/31/17 11:42 98.0 115/60 Intake and Output 05/30/17 05/30/17 05/31/17 15:00 23:00 07:00 Intake Total 150 ml Balance 150 ml Exam nad +poor air movement with wheezing, +velcro crackles abd soft no rashes no edema Results Result Diagram: 05/31/17 0649 05/31/17 0649 Results 24 hrs Laboratory Tests Test 05/30/17 16:55 05/30/17 23:15 05/31/17 06:49 White Blood Count 18.0 H 13.1 #H Red Blood Count 4.69 4.44 Hemoglobin 13.6 12.8 Hematocrit 42.1 40.1 Mean Corpuscular Volume 89.8 90.3 Mean Corpuscular Hemoglobin 29.0 28.8 L Mean Corpuscular Hemoglobin Concent 32.3 31.9 L Red Cell Distribution Width 13.0 13.1 Platelet Count 178 # 151 Mean Platelet Volume 10.6 H 11.0 H Neutrophils % 85.5 H 94.8 H Lymphocytes % 8.5 L 4.1 L Monocytes % 3.8 0.5 Eosinophils % 0.2 0.0 Basophils % 0.6 0.1 Nucleated Red Blood Cells % 0.0 0.0 Neutrophils # 15.4 H 12.4 H Lymphocytes # 1.5 0.5 L Monocytes # 0.7 0.1 L Eosinophils # 0.0 0.0 Basophils # 0.1 0.0 Nucleated Red Blood Cells # 0.0 0.0 Prothrombin Time 12.4 Prothrombin Time Ratio 1.0 INR International Normalized Ratio 0.92 Activated Partial Thromboplast Time 23.6 L Sodium Level 142 143 Potassium Level 4.3 4.2 Chloride Level 105 109 Carbon Dioxide Level 23 22 Anion Gap 18 H 16 Blood Urea Nitrogen 44 H 50 H Creatinine 2.09 H 1.96 H Glucose Level 145 165 Calcium Level 9.7 9.4 Total Bilirubin 0.4 0.3 Direct Bilirubin 0.00 0.00 Indirect Bilirubin 0.4 0.3 Aspartate Amino Transf (AST/SGOT) 25 24 Alanine Aminotransferase (ALT/SGPT) 44 40 Alkaline Phosphatase 71 60 Troponin I 0.018 B-Type Natriuretic Peptide 286 480 H Total Protein 7.4 6.9 Albumin 4.5 3.7 Globulin 2.90 3.20 Albumin/Globulin Ratio 1.55 1.15 Erythrocyte Sedimentation Rate 5 Hemoglobin A1c 5.9 Magnesium Level 1.9 C-Reactive Protein < 0.5 Triglycerides Level 119 Cholesterol Level 169 LDL Cholesterol, Calculated 71 HDL Cholesterol 74 Cholesterol/HDL Ratio 2.2 Thyroid Stimulating Hormone (TSH) < 0.015 L Medications Medications Current Medications Ondansetron HCl (Zofran Inj) 4 mg Q6H PRN IV NAUSEA AND/OR VOMITING; Start at 23:00 Acetaminophen (Tylenol Tab) 650 mg Q6H PRN PO PAIN LEVEL 1-3 OR FEVER; Start 05/30/17 at 23:00 Pantoprazole (Protonix Iv) 40 mg DAILY@06 IV Last administered on 05/31/17 06 :13; Admin Dose 40 MG; Start 05/31/17 at 06:00 Methylprednisolone Sodium Succinate (Solu-Medrol) 30 mg Q8 IV Last administered on 05/31/17 13:22; Admin Dose 30 MG; Start 05/31/17 at 06:00 Albuterol (Ventolin Hfa) 2 puff Q6H PRN INH WHEEZING AND SOB; Start 05/31/17 at 06:00 Allopurinol (Zyloprim) 100 mg DAILY PO Last administered on 05/31/17 08:34; Admin Dose 100 MG; Start 05/31/17 at 09:00 Folic Acid (Folic Acid) 1 mg DAILY PO Last administered on 05/31/17 08:34; Admin Dose 1 MG; Start 05/31/17 at 09:00 Montelukast Sodium (Singulair) 10 mg DAILY PO Last administered on 05/31/17 08:34; Admin Dose 10 MG; Start 05/31/17 at 09:00 Atorvastatin Calcium (Lipitor) 20 mg DAILY PO Last administered on 05/31/17 08:34; Admin Dose 20 MG; Start 05/31/17 at 09:00 Vitamin E (Vitamin E) 400 units DAILY PO Last administered on 05/31/17 10:36 ; Admin Dose 400 UNITS; Start 05/31/17 at 11:00 FELIPE FINE MD May 31, 2017 16:12
--- NOTE | 2017-05-31 21:29 | RADRPT ---
PROCEDURE: XR Chest. CLINICAL INDICATION: Cough. TECHNIQUE: Two views. Frontal and lateral. COMPARISON: 05/30/2017. FINDINGS: There is bilateral pulmonary interstitial disease, unchanged. The heart is enlarged. There is calcification in the aorta consistent with atherosclerosis. There is no pleural effusion. There is no pneumothorax. IMPRESSION: 1. No change from 05/30/2017. RPTAT: QQ .Yovani Carbone MD, MD Date Time Electronically viewed and signed by .Yovani Carbone MD, on 05/31/2017 21:29 .R/
[2017-06-01] VITALS (10 sets, daily range): BP systolic 109–123; BP diastolic 55–68; PULSE 88–99; RESP 18–20
[2017-06-01] MEDS ORDERED: ALBUTEROL/IPRATROPIUM (NEB) 3 ML AMP HHN PRN (01:00)
[2017-06-01] MEDS: ALBUTEROL/IPRATROPIUM (NEB) 3 ML AMP HHN SCH (01:10)
[2017-06-01] MEDS: ATORVASTATIN 20 MG TAB PO SCH (08:34)
[2017-06-01] MEDS: VITAMIN E 400 UNITS CAP PO SCH (08:34)
[2017-06-01] MEDS: MONTELUKAST 10 MG TAB PO SCH (08:35)
[2017-06-01] MEDS: ALLOPURINOL 100 MG TAB PO SCH (08:35)
[2017-06-01] MEDS: FOLIC ACID 1 MG TAB PO SCH (08:35)
[2017-06-01] MEDS ORDERED: predniSONE 20 MG TAB PO SCH (09:00)
--- NOTE | 2017-06-01 11:35 | CONS ---
Date/Time of Note Date/Time of Note DATE: 06/01/17 TIME: 11:33 Assessment/Plan Assessment/Plan Additional Assessment/Plan Assessment and recommendations; 1. Patient admitted with possibly mild flareup of underlying sarcoidosis with significant interval improvement. Chest x-ray findings are stable reflecting bilateral interstitial lung disease. 2. History of mild renal insufficiency. Agree with switching the patient to prednisone. Consider discharge. Assess for home oxygen requirement by performing ambulatory pulse oximetry on room air. Consultation Date/Type/Reason Admit Date/Time May 30, 2017 at 20:09 Initial Consult Date 05/31/17 Type of Consultation: Pulmonary 24 HR Interval Summary Free Text/Dictation Patient's condition is stable. According to her she is back to her baseline respiratory status. Denies any wheezing, coughing. General exam; elderly woman, awake and alert. Currently in no distress. Exam/Review of Systems Vital Signs Vitals Vital Signs Date Time Temp Pulse Resp B/P Pulse Ox O2 Delivery O2 Flow Rate FiO2 06/01/17 08:44 99 06/01/17 08:10 2.0 06/01/17 07:51 98.2 18 123/58 96 06/01/17 07:48 Nasal Cannula Intake and Output 05/31/17 05/31/17 06/01/17 15:00 23:00 07:00 Intake Total 200 ml Balance 200 ml Exam HEENT exam; supple neck, no JVD. No lymphadenopathy. Midline trachea. No thyromegaly. Pharynx is clear. Chest exam; scattered bilateral crackles. S1-S2 audible, no murmurs. Regular rhythm. Abdomen exam; soft, nontender. No organomegaly. Bowel sounds audible. Extremity exam; no peripheral edema. No clubbing. 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 Results Result Diagram: 05/31/17 0649 06/01/17 0839 Results 24 hrs Laboratory Tests Test 06/01/17 08:39 Sodium Level 142 Potassium Level 4.6 Chloride Level 107 Carbon Dioxide Level 25 Anion Gap 15 Blood Urea Nitrogen 59 H Creatinine 2.05 H Glucose Level 152 Calcium Level 9.6 Medications Medications Current Medications Ondansetron HCl (Zofran Inj) 4 mg Q6H PRN IV NAUSEA AND/OR VOMITING; Start at 23:00 Acetaminophen (Tylenol Tab) 650 mg Q6H PRN PO PAIN LEVEL 1-3 OR FEVER; Start 05/30/17 at 23:00 Albuterol (Ventolin Hfa) 2 puff Q6H PRN INH WHEEZING AND SOB; Start 05/31/17 at 06:00 Allopurinol (Zyloprim) 100 mg DAILY PO Last administered on 06/01/17 08:35; Admin Dose 100 MG; Start 05/31/17 at 09:00 Folic Acid (Folic Acid) 1 mg DAILY PO Last administered on 06/01/17 08:35; Admin Dose 1 MG; Start 05/31/17 at 09:00 Montelukast Sodium (Singulair) 10 mg DAILY PO Last administered on 06/01/17 08 :35; Admin Dose 10 MG; Start 05/31/17 at 09:00 Atorvastatin Calcium (Lipitor) 20 mg DAILY PO Last administered on 06/01/17 08 :34; Admin Dose 20 MG; Start 05/31/17 at 09:00 Vitamin E (Vitamin E) 400 units DAILY PO Last administered on 06/01/17 08:34; Admin Dose 400 UNITS; Start 05/31/17 at 11:00 Prednisone (Prednisone) 40 mg DAILY PO Last administered on 06/01/17 08:35; Admin Dose 40 MG; Start 06/01/17 at 09:00 AGNIESZKA HERNANDEZ Jun 01, 2017 11:35
--- NOTE | 2017-06-01 15:19 | PN ---
Date/Time of Note Date/Time of Note DATE: 06/01/17 TIME: 15:19 Assessment/Plan VTE Prophylaxis VTE Prophylaxis Intervention: SCD's Lines/Catheters IV Catheter Type (from Nrsg): Saline Lock Assessment/Plan Assessment/Plan 76 yo F with sarcoid, ?asthma here for SOB likely 2/2 bronchitis cont steroids RVP to check for viral etio. no evidence of CAP cont inhalers dc in AM if Off O2-->WEAN O2 TOLERATED. Will assess for home O2 if still on O2 tomorrow Subjective 24 Hr Interval Summary Free Text/Dictation breathing not quite back to normal Exam/Review of Systems Vital Signs Vitals Vital Signs Date Time Temp Pulse Resp B/P Pulse Ox O2 Delivery O2 Flow Rate FiO2 06/01/17 12:23 93 06/01/17 12:20 98.0 18 109/55 92 06/01/17 08:10 2.0 06/01/17 07:48 Nasal Cannula Intake and Output 05/31/17 05/31/17 06/01/17 15:00 23:00 07:00 Intake Total 200 ml Balance 200 ml Exam nad poor air movement no rashes no edema abd soft Results Result Diagram: 05/31/17 0649 06/01/17 0839 Results 24 hrs Laboratory Tests Test 06/01/17 08:39 Sodium Level 142 Potassium Level 4.6 Chloride Level 107 Carbon Dioxide Level 25 Anion Gap 15 Blood Urea Nitrogen 59 H Creatinine 2.05 H Glucose Level 152 Calcium Level 9.6 Medications Medications Current Medications Ondansetron HCl (Zofran Inj) 4 mg Q6H PRN IV NAUSEA AND/OR VOMITING; Start at 23:00 Acetaminophen (Tylenol Tab) 650 mg Q6H PRN PO PAIN LEVEL 1-3 OR FEVER; Start 05/30/17 at 23:00 Albuterol (Ventolin Hfa) 2 puff Q6H PRN INH WHEEZING AND SOB; Start 05/31/17 at 06:00 Allopurinol (Zyloprim) 100 mg DAILY PO Last administered on 06/01/17 08:35; Admin Dose 100 MG; Start 05/31/17 at 09:00 Folic Acid (Folic Acid) 1 mg DAILY PO Last administered on 06/01/17 08:35; Admin Dose 1 MG; Start 05/31/17 at 09:00 Montelukast Sodium (Singulair) 10 mg DAILY PO Last administered on 06/01/17 08 :35; Admin Dose 10 MG; Start 05/31/17 at 09:00 Atorvastatin Calcium (Lipitor) 20 mg DAILY PO Last administered on 06/01/17 08 :34; Admin Dose 20 MG; Start 05/31/17 at 09:00 Vitamin E (Vitamin E) 400 units DAILY PO Last administered on 06/01/17 08:34; Admin Dose 400 UNITS; Start 05/31/17 at 11:00 Prednisone (Prednisone) 40 mg DAILY PO Last administered on 06/01/17 08:35; Admin Dose 40 MG; Start 06/01/17 at 09:00 FELIPE FINE MD Jun 01, 2017 15:19
[2017-06-01] MEDS ORDERED: PRED20TA PO (15:23)
--- NOTE | 2017-06-01 15:31 | DS ---
Date/Time of Note Date/Time of Note DATE: 06/01/17 TIME: 15:25 Discharge Summary Admission/Discharge Info Admit Date/Time May 30, 2017 at 20:09 Discharge Date/Time Discharge Diagnosis 1. Sarcoidosis, flare, improved, on tapering dosage of prednisone 2. Hypertension, controlled without antihypertensive 3. Gout, on allopurinol 4. Dyslipidemia, on statin Patient Condition: Stable Hx of Present Illness The patient is a 74-year-old female with a history of hypertension, sarcoidosis , and possible asthma, osteoporosis, gout, chronic kidney disease complaining of shortness of breath over the past few days. The patient says that she has shortness of breath with exertion and with lying flat. The patient says that she has had a cough for about 2 weeks now it is occasionally productive but no fever. No substernal chest pain no shortness of breath at rest. The patient is not on home oxygen, but does have a nebulizer machine. The patient says she is on steroids for her sarcoidosis. She does report that she has been noticing herself wheezing as well. Hospital Course Patient was started on SoluMedrol fro sarcoidosis flare up that improves her shortness of breath and hypoxia. SpO2 94% on room air. There is no infection clinically. Leukocytosis is considered steroid related. Patient will be on tapering dosage of prednisone and follow up with PCP outpatient. Home Meds Active Scripts Prednisone* (Prednisone*) 20 Mg Tab, 40 MG PO DAILY for 5 Days, TAB Prov:ROCHELLE BEGUM MD 06/01/17 Albuterol/Ipratropium* (Combivent Respimat*) 20-100 Mcg/Inh - 4 Gm Aer.w.adap, 1 PUFF IH QID, #1 BOT Prov:RAVEN STERN 03/11/15 Reported Medications Vitamin E* (Vitamin E*) Unknown Strength Capsule, 1 CAP PO DAILY, CAP 05/30/17 Albuterol Sulfate* (Proair HFA*) 8.5 Gm Hfa.aer.ad, 2 PUFF INH Q6H Y for WHEEZING AND SOB, #1 INHALER 05/30/17 Alendronate Sodium* (Fosamax*) 70 Mg Tablet, 70 MG PO Q7D, TAB ON Tuesday05/17/14 Folic Acid* (Folic Acid*) 1 Mg Tablet, 1 MG PO DAILY 10/11/12 Pravastatin Sodium* (Pravachol*) 40 Mg Tablet, 40 MG PO DAILY 10/11/12 Omeprazole* (Omeprazole*) 20 Mg Capsule.dr, 20 MG PO DAILY 10/11/12 Montelukast Sodium* (Singulair*) 10 Mg Tablet, 10 MG PO DAILY 10/11/12 Allopurinol* (Allopurinol*) 100 Mg Tablet, 100 MG PO DAILY 10/11/12 Discontinued Reported Medications Prednisone* (Prednisone*) 10 Mg Tab, 10 MG PO DAILY, TAB QAM 05/17/14 Losartan Potassium* (Cozaar*) 100 Mg Tablet, 100 MG PO DAILY 10/11/12 Beclomethasone Dip* (Qvar 80*) 7.3 Gm Inha, 2 PUFF INH BID, INH 05/17/14 Discontinued Scripts Albuterol Sulfate* (Albuterol Sulfate* Neb) 0.083%-3 Ml Neb, 2.5 MG NEB Q4 Y for SHORTNESS OF BREATH, #30 EA Prov:ZACHARY MISHRA DO 05/16/17 Prednisone* (Prednisone*) 20 Mg Tab, 40 MG PO DAILY for 4 Days, TAB Prov:JUWAN MISHRASTKAMIS Sophia DO 05/16/17 Azithromycin* (Zithromax*) 250 Mg Tablet, 250 MG PO .JOSE DIRECTED, #6 TAB TAKE 500 MG (2 TABS) THE FIRST DAY THEN 250 MG (1 TAB) DAYS 2-5 Prov:ZACHARY MISHRA DO 05/16/17 Diclofenac Sodium* (Voltaren* Gel) 1% -100 Gm Gel, 2 GM TOP QID for PAIN for 14 Days, TUB Prov:MILADIS PIZANO [employer] 08/13/15 Hydrocodone Bit-Acetaminophen* ([place]*) 5-325 Mg Tab, 1 TAB PO Q6 Y for PAIN, # 14 TAB Prov:SUSI FLETCHER PA-C 07/30/15 Acetaminophen* (Tylenol*) 325 Mg Tablet, 2 TAB PO Q6 Y for PAIN AND OR ELEVATED TEMP, #20 TAB Prov:VALENCIA MARMOLEJO [employer] COMPENSATION MEDIATOR 07/23/15 Albuterol Sulfate* (Proventil* Neb) 0.083% Neb, 2.5 MG NEB Q4 Y for SHORTNESS OF BREATH, #30 EA Prov:NEISHA GONZALEZ MD 07/20/15 Ipratropium [place]* (Atrovent*) 0.5 Mg/2.5 Ml Neb, 0.5 MG NEB Q4H Y for WHEEZING AND SOB, #1 BOX Prov:NEISHA GONZALEZ MD 07/20/15 Guaifenesin-Codeine Phosphate* (Guaifenesin* with Codeine Liq) 120 Ml Liquid, 5 ML PO Q4H Y for COUGH, #120 ML Prov:NAUN SINGLETON NP 04/28/15 Follow-up Plan PCP in one week Primary Care Provider Kaden Orta MD Pending Labs Laboratory Tests Test 06/01/17 08:39 Sodium Level 142mmol/L (135-144) Potassium Level 4.6mmol/L (3.5-5.1) Chloride Level 107mmol/L (97-110) Carbon Dioxide Level 25mmol/L (21-31) Anion Gap 15 (8-16) Blood Urea Nitrogen 59mg/dl (7-20) Creatinine 2.05mg/dl (0.44-1.00) Glucose Level 152mg/dl (70-220) Calcium Level 9.6mg/dl (8.4-10.2) ROCHELLE BEGUM MD Jun 01, 2017 15:31
== END 2017-06-01 17:32 | disposition home or self-care (01) | DRG 197 ==
LOC: E/R 13:25 → MS4 20:09
PROVIDERS: ADMIT Family Medicine; ATTEND Family Medicine
DX: D86.9 Sarcoidosis, unspecified (principal); J44.0 Chronic obstructive pulmonary disease with (acute) lower respiratory infection; J20.9 Acute bronchitis, unspecified; I12.9 Hypertensive chronic kidney disease with stage 1 through stage 4 chronic kidney disease, or unspecified chronic kidney disease; N18.9 Chronic kidney disease, unspecified; Z79.52 Long term (current) use of systemic steroids
CPT/HCPCS: 36415; 71010; 71020; 80048; 80053; 80061; 83036; 83735; 83880; 84443; 84484; 85025; 85610; 85651; 85730; 86140; 87275; 87276; 87279; 87280; 93005; 94640; 94664; 96374; C9113; J2920; J2930; J7040; J7512

== ENCOUNTER 2017-08-08 07:52 | Emergency (ER) | END 2017-08-08 09:32 | disposition home or self-care (01) ==